=== PATIENT | male | born 1985 | race African-American/Black ===

== ENCOUNTER → 2021-10-30 | Outpatient (CLI) | payer OTHER ==
--- NOTE | 2021-10-30 09:02 | MR ---
EXAMINATION TYPE: MR lumbar spine wo con DATE OF EXAM: 10/30/2021 8:09 AM COMPARISON: None. CLINICAL INDICATION:Male, 35 years old with history of M54.50; TECHNIQUE: Multi planar, multi sequence imaging was performed utilizing: T1-weighted, T2-weighted, a nd turbo inversion recovery imaging of the lumbar spine. IV Contrast: None FINDINGS: Alignment: The lumbar vertebral bodies have preserved heights and alignment. Cord: The conus medullaris and the distal spinal cord appear unremarkable with regards to their signa l intensity and morphology. Bones/Discs: Bone signal is within normal limits. STIR imaging demonstrates bony edema involving the L4 vertebral body superior and inferior endplate. Likely reactive possibly due to Schmorl's nodes. Mu ltilevel degenerative disc disease is noted and most pronounced at the L4-L5. Multilevel disc desicca tion is present. L1-L2: No significant disc pathology. Spinal canal is patent. The neural foramen are patent. L2-L3: Disc bulge with narrowing of the ventral subarachnoid space, the spinal canal is patent. The n eural foramen are patent. L3-L4: Disc bulge with narrowing of the ventral subarachnoid space, the spinal canal is patent. The n eural foramen are patent. L4-L5: Disc bulge with narrowing of the ventral subarachnoid space, the spinal canal is patent. Facet joint arthropathy resulting in mild bilateral neural foraminal stenosis. L5-S1: Disc bulge with facet joint arthropathy result in no significant spinal canal stenosis. The ne ural foramen are mildly narrowed. Other findings: None. IMPRESSION: 1. No definitive evidence of disc herniation or significant spinal canal stenosis. 2. Multilevel disc degeneration with associated osteoarthritic changes worse at L4 with superior and inferior endplate demonstrating reactive bony edema which could be secondary to degeneration changes or Schmorl's nodes.
== END | disposition home or self-care (01) ==
LOC: RADMRIMAIN 07:16
PROVIDERS: ATTEND Family Medicine
DX: M51.26 Other intervertebral disc displacement, lumbar region (principal)
CPT/HCPCS: 72148